=== PATIENT | male | born 1985 | race Caucasian/White ===

== ENCOUNTER 2017-08-20 15:09 | Emergency (ER) | payer OTHER ==
[~2017-08-20] VITALS: Ht 190.5 cm; Wt 109.0 kg
--- NOTE | 2017-08-20 16:08 | Urgent Treatment Center Report ---
History of Present Issue Date/Time Seen by Provider 08/20/17 1554 Visit Reason Pt arrived:Walked Presenting Problem:PT STATES HE HAS A STYE IN RIGHT EYE AND WORRIED ABOUT POSSIBLE PINK EYE WITH IT Location if Accident: Onset of symptoms date/time:08/18/17 or onset unknown for: Have you (or family members/close friends) recently traveled outside the [place]? N If Yes, where/when: Have you had exposure to infectious disease within the past month? TB? Other? Specify: Patient state that he has a stye on his right eye, state that he noticed that he was having some matting and noticed drainage and was worried that he may have pinkeye States that stye has been present for a couple of days state that it is not messing with his vision just very aggrivating History Medical History General CAD? No Angina: No GA: No Hypertension? No CHF? No DVT? No COPD? No Asthma? No Anemia? No GERD? No Gastric ulcers? No GI Bleed? No Hernia? No Thyroid Problems? No Hypothyroidism? No CVA? No Seizures? No Diabetes? No Renal Insuffiency? No UTI? No Stones? No BPH? No GB Disease: No Nephritic Syndrome? No Asplenia? No Hepatitis? No Sickle Cell Disease? No Arthritis? No Migraines? No Glaucoma? No MRSA? No HIV? No TB? No Anxiety? No Depression? No Cancer? No More? No Immunization HX Ped.Immunizations UTD Yes DT/Tetanus 5-10 Years Ago Surgical Hx Previous Surgery?Y Social History Smoking Hx Smoker: Current Every Day Smoker Tobacco: Yes Type N/A Packs/day 1 1/2 - 2 Packs Alcohol Alcohol: No Review of Systems All Other Systems Reviewed and Negative Eyes drainage, other (stye on right eye) Comment Stye on right eye and worried that he may have pink eye Physical Exam Vital Signs Vital Signs Date Time Temp Pulse Resp B/P Pulse O2 O2 Flow FiO2 Ox Delivery Rate 08/20 1527 98.5 88 20 145/75 98 General Appearance normal appearance, WD/WN, no apparent distress Eye Exam - right eye eyelid inflammation, right eye other, bilateral eye normal exam, bilateral eye PERRL Respiratory Status Yes: trachea midline, chest symmetrical, non tender chest. No: respiratory distress. 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 No Departure Departure Time of Disposition 1611 Disposition DC Home or Self Care(routine) Clinical Impression Primary Impression: Blepharitis Qualifiers: Blepharitis type: unspecified type Laterality: right Eyelid: upper Qualified Code: H01.001 - Unspecified blepharitis right upper eyelid Condition STABLE Referrals Dr Mares Patient Instructions Blepharitis, Blepharitis (Alternative Therapy), DI for Blepharitis Additional Instructions Apply warm, wet compresses for 5 to 10 minutes, 3 to 6 times a day. This usually helps the area heal faster. ... Use an zfaj-jej-pieaapf treatment. ... Let the stye or chalazion open on its own Home treatment is all that is needed for most styes and chalazia. Apply warm, wet compresses for 5 to 10 minutes, 3 to 6 times a day. This usually helps the area heal faster. It may also help open a blocked pore so that it can drain and start to heal. Use an [id number] treatment. Try an ointment (such as Stye), solution ( such as Bausch [employer] Lomb Eye Wash), or medicated pads (such as Ocusoft Lid Scrub) . Let the stye or chalazion open on its own. Don't squeeze or open it. Don't wear eye makeup or contact lenses until the area has healed . Discharge Counseling Counseled pt/family regarding diagnosis, medications/RX, home care, follow up needs Prescriptions Current Visit Scripts GENTAMICIN SULFATE (GENTAMICIN 0.3% OPHTH SOLN) 1-2 DROP OP Q4HP PRN eyelid infection #5 ML TO AFFECTED EYE(S) at 1616
--- NOTE | 2017-08-20 16:08 | Urgent Treatment Center Report ---
History of Present Issue Date/Time Seen by Provider 08/20/17 1554 Visit Reason Pt arrived:Walked Presenting Problem:PT STATES HE HAS A STYE IN RIGHT EYE AND WORRIED ABOUT POSSIBLE PINK EYE WITH IT Location if Accident: Onset of symptoms date/time:08/18/17 or onset unknown for: Have you (or family members/close friends) recently traveled outside the [place]? N If Yes, where/when: Have you had exposure to infectious disease within the past month? TB? Other? Specify: Patient state that he has a stye on his right eye, state that he noticed that he was having some matting and noticed drainage and was worried that he may have pinkeye States that stye has been present for a couple of days state that it is not messing with his vision just very aggrivating History Medical History General CAD? No Angina: No PA: No Hypertension? No CHF? No DVT? No COPD? No Asthma? No Anemia? No GERD? No Gastric ulcers? No GI Bleed? No Hernia? No Thyroid Problems? No Hypothyroidism? No CVA? No Seizures? No Diabetes? No Renal Insuffiency? No UTI? No Stones? No BPH? No GB Disease: No Nephritic Syndrome? No Asplenia? No Hepatitis? No Sickle Cell Disease? No Arthritis? No Migraines? No Glaucoma? No MRSA? No HIV? No TB? No Anxiety? No Depression? No Cancer? No More? No Immunization HX Ped.Immunizations UTD Yes DT/Tetanus 5-10 Years Ago Surgical Hx Previous Surgery?Y Social History Smoking Hx Smoker: Current Every Day Smoker Tobacco: Yes Type N/A Packs/day 1 1/2 - 2 Packs Alcohol Alcohol: No Review of Systems All Other Systems Reviewed and Negative Eyes drainage, other (stye on right eye) Comment Stye on right eye and worried that he may have pink eye Physical Exam Vital Signs Vital Signs Date Time Temp Pulse Resp B/P Pulse O2 O2 Flow FiO2 Ox Delivery Rate 08/20 1527 98.5 88 20 145/75 98 General Appearance normal appearance, WD/WN, no apparent distress Eye Exam - right eye eyelid inflammation, right eye other, bilateral eye normal exam, bilateral eye PERRL Respiratory Status Yes: trachea midline, chest symmetrical, non tender chest. No: respiratory distress. 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 No Departure Departure Time of Disposition 1611 Disposition DC Home or Self Care(routine) Clinical Impression Primary Impression: Blepharitis Qualifiers: Blepharitis type: unspecified type Laterality: right Eyelid: upper Qualified Code: H01.001 - Unspecified blepharitis right upper eyelid Condition STABLE Referrals Dr Mares Patient Instructions Blepharitis, Blepharitis (Alternative Therapy), DI for Blepharitis Additional Instructions Apply warm, wet compresses for 5 to 10 minutes, 3 to 6 times a day. This usually helps the area heal faster. ... Use an nbpj-fml-gzfsybh treatment. ... Let the stye or chalazion open on its own Home treatment is all that is needed for most styes and chalazia. Apply warm, wet compresses for 5 to 10 minutes, 3 to 6 times a day. This usually helps the area heal faster. It may also help open a blocked pore so that it can drain and start to heal. Use an lkau-yig-fuiosop treatment. Try an ointment (such as Stye), solution ( such as Bausch [employer] Lomb Eye Wash), or medicated pads (such as Ocusoft Lid Scrub) . Let the stye or chalazion open on its own. Don't squeeze or open it. Don't wear eye makeup or contact lenses until the area has healed . Discharge Counseling Counseled pt/family regarding diagnosis, medications/RX, home care, follow up needs Prescriptions Current Visit Scripts GENTAMICIN SULFATE (GENTAMICIN 0.3% OPHTH SOLN) 1-2 DROP OP Q4HP PRN eyelid infection #5 ML TO AFFECTED EYE(S) at 161
[2017-08-20] MEDS ORDERED: GENTAMICIN O5 ML/BOT OP (16:14)
[2017-08-20 16:15] VITALS: BP 145/75
== END 2017-08-20 16:16 | disposition home or self-care (01) ==
LOC: UTC 15:09
DX: H01.001 Unspecified blepharitis right upper eyelid (principal); F17.210 Nicotine dependence, cigarettes, uncomplicated